=== PATIENT | female | born 1940 | race Caucasian/White ===

== ENCOUNTER 2020-09-09 10:43 | Observation (INO) | payer MEDICARE, OTHER, SELFPAY ==
[2020-09-09] VITALS (14 sets, daily range): BP systolic 113–157; BP diastolic 64–124; PULSE 57–68; RESP 16–18; TEMP 36.6–36.8; O2SAT 95–100; BMI 42.5; BMI 40.4
--- NOTE | 2020-09-09 10:58 | EDS_ITS ---
HPI History of Present Illness Chief Complaint: Chest Pain Informant: patient Onset/Context/Timing Onset: Today Activity at onset: sudden Quality: Positive for Sharp Location: Left Chest Current Severity: Mild Associated Symptoms: Positive for Lightheadedness Narrative Patient is a 80-year-old female with history of proximal atrial fibrillation, on amiodarone and Xarelto, hypertension and hyperlipidemia presenting with chest pain. Patient states started around 730 this morning. She was at rest when it started. It was underneath her left breast/left ribs and this did radiate across her chest. She states it is slightly worsened by deep breathing. Its been intermittent. She notes she started to feel dizzy and lightheaded and almost if she would pass out at home. She had some increased belching. She did have some mild nausea when she was feeling dizzy but denies any other nausea. She denies any new swelling of her legs but notes she has a history of dependent edema which is relatively unchanged. She did feel little sore in her left shoulder and states she felt that way previously when she is on statins. That also has resolved. Should a mild cough last night which is resolved. She denies any symptoms. She notes she did have some belching this morning but denies any other GI symptoms. Her cleaning team member is Dr. Elizabeth Vaca in [place]. Patient notes over the past month has had an intentional 10 pound weight loss with diet changes. She does note that she has had some chronic dyspnea on exertion when she uses her cane but does not feel that way when she uses her Rollator. Patient is coming from home. She was given 381 mg aspirin in route. Prior Similar Symptoms: No CVD Risk Factors: Positive for Hypertension [facility] Medical History (Updated 09/09/20 @ 19:[address] Jaelyn Flores, DO) Anemia Atrial fibrillation Chest pain High cholesterol History of hyperlipidemia History of stress test Hypertension Irregular heart beat Non-smoker Post-menopausal Vision loss of left eye Vision loss of right eye Home Medications amiodarone 200 mg PO DAILY 09/09/20 [History Last Taken 09/09/20] clonidine HCl 0.1 mg PO BID 09/09/20 [History Last Taken 09/09/20] fenofibrate 160 mg PO DAILY 09/09/20 [History Last Taken 09/09/20] metoprolol succinate 50 mg PO BID 09/09/20 [History Last Taken 09/09/20] quinapril 40 mg PO DAILY 09/09/20 [History Last Taken 09/09/20] rivaroxaban [Xarelto] 20 mg PO DAILY 09/09/20 [History Last Taken 09/08/20] triamterene 50 mg PO DAILY 09/09/20 [History Last Taken 09/09/20] vit C,L-Ng-ognvi-lutein-zeaxan [PreserVision AREDS-2] 1 tab PO BID 09/09/20 [History Last Taken 09/09/20] Allergy/AdvReac Type Severity Reaction Status Date / Time fish oil Allergy Hives Verified 09/09/20 10:45 Surgical History (Updated 09/09/20 @ 16:11 by Ella Euceda) S/P hysterectomy Social History (Updated 09/09/20 @ 10:47 by Divina Min) housing: house Smoking Status: Never smoker ROS ROS ED Constitutional Constitutional ED: Denies fatigue or weakness Eyes Eyes: Denies blurry vision or other visual disturbances Cardiovascular Cardiovascular: Reports chest pain; Denies orthopnea, palpitations or racing heartbeat Respiratory/Chest Respiratory/Chest: Reports dyspnea on exertion; Denies cough, dyspnea or orthopnea Gastrointestinal Gastrointestinal: Reports nausea; Denies abdominal pain or vomiting Genitourinary Genitourinary ED: Denies decreased urination or dysuria Musculoskeletal Musculoskeletal: Reports other Details: no leg swelling ; Denies extremity pain Integumentary Denies new lesions or rash Neurologic Neurologic: Denies paresthesias or weakness Psychiatric Psychiatric: Denies anxiety or depression Hematologic/Lymphatic Hematologic/Lymphatic: Denies easy bleeding or easy bruising EXAM Physical Exam Const Vital Signs: 09/09/20 10:45 09/09/20 11:15 09/09/20 13:10 Temperature 98.3 F Temperature Source Temporal Pulse Rate 58 L 63 Respiratory Rate 16 18 Blood Pressure 152/124 H 125/65 H Blood Pressure Mean 133 85 Pulse Ox 98 95 100 Oxygen Delivery Method Room Air Nasal Cannula Nasal Cannula Oxygen Flow Rate (L/min) 2 2 09/09/20 14:49 Temperature Temperature Source Pulse Rate 64 Respiratory Rate 18 Blood Pressure 157/104 H Blood Pressure Mean 121 Pulse Ox 96 Oxygen Delivery Method Room Air Oxygen Flow Rate (L/min) Positive well nourished, well developed, alert and oriented x3 General Appearance ED: well developed HEENT Reports normocephalic and moist mucous membranes normocephalic Mouth ED: Yes moist mucous membranes normal Eyes PERRL and EOMs intact bilaterally General Eye ED: Yes normal appearance of both eyes Pupil: PERRL Neck supple and no JVD Lymph Lymphatic: no lymphadenopathy noted Chest Wall inspection of chest normal and palpation of chest normal Resp normal respiratory effort, normal air movement and clear to auscultation bilaterally Resp Narrative: No crackles appreciated Cardio regular rate and regular rhythm Peripheral Pulses: pulses 2+ throughout GI soft to palpation, non-tender and non-distended Back/Spine no CVA tenderness and normal to inspection Extremity normal to inspection and full ROM Extremity Narrative: Mild nonpitting edema of the lower extremities bilaterally Neuro oriented x3, moves all extremities and no focal motor deficits Neuro Narrative: No focal neurologic deficits Sensorium / Orientation: awake and alert Psych mental status grossly normal and thought process normal Skin no rashes or lesions noted and no petechiae Heart Score History: Moderately Suspicious ECG: Normal Age: >/= 65 years Risk Factors: 1 or 2 Risk Factors Troponin: </= Normal Limit Score: 4 MDM MDM MDM Narrative Medical decision making narrative: Patient evaluated for chest pain that seems to be worse with exertion. It is pleuritic in nature. Patient does live home alone. She does have significant cardiac history. Her BNP is elevated she has cardiomegaly on chest x-ray. White blood cells are elevated at 50 with a resolving source of infection. Troponin is normal x2. TSH is normal. Creatinine is mildly elevated at 1.3. Not sure what her baseline is. No other significant laboratory abnormalities. Patient is ambulated is not hypoxic. She is symptomatic. She not feel safe going home. She does live home alone. She is anticoagulated on Xarelto so I do not suspect a PE. She states she has been compliant with her medication. Her heart score is 4 therefore she is not low risk for outpatient cardiac evaluation. Will be admitted for further cardiac monitoring and evaluation. Lab Data Labs: Laboratory Results - last 24 hr 09/09/20 09/09/20 09/09/20 10:50 10:50 10:50 WBC 15.0 H RBC 5.22 Hgb 14.1 Hct 46.9 MCV 89.8 MCH 27.0 MCHC 30.1 L RDW Std Deviation 46.4 H RDW Coeff of Laura 14.0 Plt Count 214 MPV 10.9 Immature Gran % (Auto) 0.400 Neut % (Auto) 85.8 H Lymph % (Auto) 5.1 L [place] % (Auto) 7.5 Eos % (Auto) 0.9 Baso % (Auto) 0.3 Absolute Neuts (auto) 12.8 H Absolute Lymphs (auto) 0.77 L Nucleated RBC % 0 Sodium 136 Potassium 3.9 Chloride 101 Carbon Dioxide 31.0 Anion Gap 4 L BUN 27 H Creatinine 1.30 H Estim Creat Clear Calc 29.03 Est GFR (MDRD) Af Amer 51 L Est GFR (MDRD) Non-Af 42 L BUN/Creatinine Ratio 20.8 H Glucose 103 Calcium 9.1 Magnesium 2.0 Troponin I < 0.015 B-Natriuretic Peptide 414.4 H TSH 0.91 09/09/20 13:50 WBC RBC Hgb Hct MCV MCH MCHC RDW Std Deviation RDW Coeff of Laura Plt Count MPV Immature Gran % (Auto) Neut % (Auto) Lymph % (Auto) [place] % (Auto) Eos % (Auto) Baso % (Auto) Absolute Neuts (auto) Absolute Lymphs (auto) Nucleated RBC % Sodium Potassium Chloride Carbon Dioxide Anion Gap BUN Creatinine Estim Creat Clear Calc Est GFR (MDRD) Af Amer Est GFR (MDRD) Non-Af BUN/Creatinine Ratio Glucose Calcium Magnesium Troponin I < 0.015 B-Natriuretic Peptide TSH Radiography Diagnostic Testing: Radiology Impression Chest X-Ray 09/09/20 11:25 IMPRESSION: Moderate cardiomegaly. Electronically Signed: Alfredo Patrick MD at 12:05 EDT , Service support , Rhythm Strip Rhythm Strip: Sinus Rhythm Rate: 69 Ectopy: None EKG Initial EKG: Attestation: I personally reviewed and interpreted this EKG as follows: Interpretation: Sinus Rhythm Comments: Normal sinus rhythm at a rate of 69 First-degree AV block with a CT interval of 316 Normal QRS and QTc Left axis deviation Normal ST segments Prior EKG tracings: not available for review Prior: No Prior Discharge Plan Dx/Rx/DC Orders Clinical Impression: Chest pain Disposition Disposition: Acute Care Hospital [facility] Discharge Date/Time: 09/09/20 15:44
--- NOTE | 2020-09-09 10:58 | EKG12_ITS ---
Test Reason : CP Blood Pressure : / mmHG Vent. Rate : 069 BPM Atrial Rate : 069 BPM P-R Int : 316 ms QRS Dur : 104 ms QT Int : 444 ms P-R-T Axes : 062 -59 032 degrees QTc Int : 475 ms Sinus rhythm with 1st degree A-V block Left axis deviation Abnormal ECG Confirmed by NABEEL GARRIDO, DEVIN ([id number]), clinical editor ARBEN AVINA ([id number]) on 09/13/2020 10:57:10 AM Referred By: EDUARD/JORDY Confirmed By:DEVIN LEES MD
[2020-09-09 11:10] LABS: Absolute Lymphocyte Count 0.77 X10^3/uL (0.83-4.51); Absolute Neutrophil Count 12.8 X10^3/uL (2.0-7.7); Basophil# 0.04 X10^3/uL; Basophil% 0.3 % (0-1); Eosinophil# 0.14 X10^3/uL; Eosinophils% 0.9 % (0-5); Hematocrit 46.9 % (37-47); Hemoglobin 14.1 g/dL (12.0-15.0); Lymphocyte # 0.77 X10^3/ul (0.83-4.51); Lymphocyte % 5.1 % (19-41); Mean Corp Hgb Conc 30.1 g/dL (32-36); Mean Corpuscular Volume 89.8 fL (81-99); Mean Platelet Vol. 10.9 fl (6.2-12.0); Monocyte# 1.13 X10^3/uL; Monocyte% 7.5 % (0-10); NRBC Flagged by Analyzer 0 % (0-5); Neutrophil # 12.84 X10^3/uL (2.7-7.7); Neutrophil % 85.8 % (47-70); Platelet Count 214 K/mm3 (150-450); RBC Distribution Width SD 46.4 fl (35.1-43.9); Red Blood Count 5.22 M/mm3 (4.2-5.4)
--- NOTE | 2020-09-09 11:25 | RAD_ITS ---
STUDY: X-RAY CHEST REASON FOR EXAM: Female, 80 years old. Chest pain and dizziness. TECHNIQUE: AP and lateral views of the chest. COMPARISON: None. FINDINGS: EKG electrodes are seen. The lungs are clear and expanded. There is no demonstrated pleural abnormality. There is moderate cardiac enlargement. Normal mediastinum and kristin. Normal visualized pulmonary arteries. There is atherosclerotic calcification of the aortic arch with tortuosity. Normal visualized thoracic spine. Normal visualized ribs, clavicles, and shoulders. There is no demonstrated abnormality of the visualized soft tissue structures of the upper abdomen. RAD/Chest PA and Lateral IMPRESSION: Moderate cardiomegaly. Electronically Signed: Alfredo Patrick MD at 12:05 EDT , Service support ,
[2020-09-09 11:31] LABS: Anion Gap 4 (5-15); BUN 27 mg/dL (7-18); BUN/Creat Ratio 20.8 RATIO (10-20); Calcium,Total 9.1 mg/dL (8.5-10.1); Chloride 101 mmol/L (98-107); EST Glomerular Filtration Rate 42 mL/min (>60); Est Glom Filt Rate - Afr Amer 51 mL/min (>60); Estimated Creatinine Clearance 29.03 ml/min; Glucose 103 mg/dL (74-106); Potassium 3.9 mmol/L (3.5-5.1); Sodium Level 136 mmol/L (136-145); Thyroid Stim Hormone (TSH) 0.91 uIU/mL (0.358-3.74)
[2020-09-09 11:36] LABS: BNP,B-Type NATRIURETIC PEPTIDE 414.4 pg/mL (0-100)
--- NOTE | 2020-09-09 15:35 | HP.PCM.HOS_ITS ---
Documented by User: Bright TORREZ 09/09/20 15:58 HPI - General General Date of Admission: 09/09/20 HPI Narrative Patient is a 80-year-old female presents to the ED at [facility] on 09/09/2020 with a chief complaint of chest pain and shortness of breath. Patient stated that her symptoms began around 730 this morning and reports a burning sensation that begins underneath both her breasts and radiate out across her chest. Patient also endorses dizziness, lightheadedness, nausea and increased belching. She denies any history of reflux. Patient wrist states that her legs are mildly swollen when compared to normal. Patient denies any r ecent recent sicknesses or sick contacts. Patient has completed a 2 dose series of the COVID vaccine. Past medical history is significant for atrial fibrillation, hypertension and hyperlipidemia. Patient's A. fib is managed on amiodarone and Xarelto, which she follows with her ships equipment engineer Dr. Elizabeth Vaca in [place]. Patient denies any history of heart failure or myocardial infarction, however did have an echocardiogram completed 3 weeks ago in [place]. EKG in the ED demonstrated a normal sinus rhythm at a rate of 69 with a first-degree AV block, no ST or T wave abnormalities noted. Initial troponins not elevated. BNP elevated at 414.4. CBC demonstrates a mild leukocytosis with a white blood cell count of 15. BMP shows a mildly elevated creatinine at 1.3. Chest x-ray demonstrates moderate cardiac enlargement, no acute pulmonary pathology noted. Heart score in the ED was 4. Aspirin 324 mg p.o. x1 given in the ED. Patient will be admitted to PCU for cardiac monitoring. [facility] Medical History (Updated 09/09/20 @ 16:11 by Ella Euceda) Anemia Atrial fibrillation Chest pain High cholesterol History of hyperlipidemia History of stress test Hypertension Irregular heart beat Non-smoker Post-menopausal Vision loss of left eye Vision loss of right eye Home Medications amiodarone 200 mg PO DAILY 09/09/20 [History Last Taken 09/09/20] clonidine HCl 0.1 mg PO BID 09/09/20 [History Last Taken 09/09/20] fenofibrate 160 mg PO DAILY 09/09/20 [History Last Taken 09/09/20] metoprolol succinate 50 mg PO BID 09/09/20 [History Last Taken 09/09/20] quinapril 40 mg PO DAILY 09/09/20 [History Last Taken 09/09/20] rivaroxaban [Xarelto] 20 mg PO DAILY 09/09/20 [History Last Taken 09/08/20] triamterene 50 mg PO DAILY 09/09/20 [History Last Taken 09/09/20] vit C,S-Mi-aahgg-lutein-zeaxan [PreserVision AREDS-2] 1 tab PO BID 09/09/20 [History Last Taken 09/09/20] Allergy/AdvReac Type Severity Reaction Status Date / Time fish oil Allergy Hives Verified 09/09/20 10:45 Surgical History (Updated 09/09/20 @ 16:11 by Ella Euceda) S/P hysterectomy Social History (Updated 09/09/20 @ 10:47 by Divina Min) housing: house Smoking Status: Never smoker ROS Constitutional Constitutional: Reports weight loss; Denies systems reviewed and no addt'l complaints, except as documented, as per HPI, anorexia, body ache(s), change in weight, chills, daytime sleepiness, difficulty sleeping, excessive sweating, fatigue, fever(s), frequent falls, headache(s), increased appetite, lethargy, malaise, night sweats, poor appetite, snoring, stops breathing during sleep, weakness, weight gain or other Eyes Eyes: Denies systems reviewed and no addt'l complaints, except as documented, as per HPI, none, acute decrease in peripheral vision, blindness, blind spots, bloody eye, blurry vision, burning, change in eye color, change in vision, decreased night vision, diplopia, discharge from eye(s), discongugate gaze, doub le vision, dry eyes, erythema, excessive blinking, exophthalmos, eye pain, floaters, foreign body, halo effect, irritation, itchy eyes, loss of central vision, loss of peripheral vision, loss of vision, miosis, mydriasis, numbness, nystagmus, other visual disturbances, periorbital itching, photophobia, ptosis, puffy eyes, requires corrective lenses, seeing flashes, spots in vision, sunken eyes, tearing, tunnel vision or other ENT HEENT: Denies systems reviewed and no addt'l complaints, except as documented, as per HPI, none, abnormal hearing, bleeding gums, change in voice, dental pain, disequillibrium, dizziness, dry mouth, dysphagia, ear discharge, ear pain, epistaxis, facial pain, foreign body in nose, halitosis, headache(s), hearing loss, hoarseness, lip swelling, loss taste/smell, mouth lesions, mouth pain, muc ositis, nasal congestion, nasal discharge, nasal obstruction, nasal trauma, neck mass, neck pain, nose pain, odynophagia, otalgia, post nasal drip, rhinorrhea, sinus pain, sinus pressure, sore throat, throat swelling, tinnitus, tongue swelling, vertigo or other Cardiovascular Cardiovascular: Reports as per HPI Respiratory/Chest Respiratory/Chest: Reports as per HPI Gastrointestinal Gastrointestinal: Reports as per HPI and none Genitourinary Genitourinary: Denies systems reviewed and no addt'l complaints, except as documented, as per HPI, none, abdominal discomfort, anuria, burning urination, change in libido, change in urinary stream, contractions, difficulty urinating, difficulty with ejaculations, dribbling, dysuria, erectile dysfunction, external genitalia discoloration, movement, flank pain, genital bruising, genital lesions, genital pain, hematospermia, hematuria, itching, low back pain, nocturia, oliguria, painful ejaculations, penile discharge, penile swelling, polyuria, post void dribbling, scrotal pain, scrotal swelling, testicular mass, testicular swelling, undescended testicles, urinary frequency, urinary hesitancy, urinary incontinence, urinary urgency or other Musculoskeletal Musculoskeletal: Denies systems reviewed and no addt'l complaints, except as documented, as per HPI, none, abnormal gait, arthralgias, atrophy, back pain, deformity, difficulty walking, extremity pain, joint pain, joint stiffness, joint swelling, limited range of motion, loss of height, muscle cramps, muscle spasms, muscle weakness, myalgias, neck pain, numbness, radiating pain into limb, stiffness, tingling, tremors or other Integumentary Integumentary: Reports none Neurologic Neurologic: Reports none Psychiatric Psychiatric: Reports none Endocrine Endocrinology: Reports none Hematologic/Lymphatic Hematologic/Lymphatic: Reports none Allergic/Immunologic Allergic/Immunologic: Reports none Vital Signs Vital Signs Vital Signs: 09/09/20 10:45 09/09/20 11:15 09/09/20 13:10 Temperature 98.3 F Temperature Source Temporal Pulse Rate 58 L 63 Respiratory Rate 16 18 Blood Pressure 152/124 H 125/65 H Blood Pressure Mean 133 85 Pulse Ox 98 95 100 Oxygen Delivery Method Room Air Nasal Cannula Nasal Cannula Oxygen Flow Rate (L/min) 2 2 09/09/20 14:49 09/09/20 15:30 Temperature 98.3 F Temperature Source Oral Pulse Rate 64 64 Respiratory Rate 18 18 Blood Pressure 157/104 H 132/112 H Blood Pressure Mean 121 118 Pulse Ox 96 97 Oxygen Delivery Method Room Air Room Air Oxygen Flow Rate (L/min) Physical Exam Const alert, oriented x3 and no apparent distress HEENT normocephalic, head/scalp atraumatic and hearing grossly normal bilaterally Eyes PERRL and EOMs intact bilaterally Neck full ROM, nuchal rigidity, supple and no JVD Lymph Lymphatic: no lymphadenopathy noted Chest Chest: abnormal inspection of the chest and symmetrical chest wall rise Resp normal respiratory effort, normal air movement and no retractions Cardio regular rate, regular rhythm, no murmurs, no rub and no gallops GI normal to inspection, nondistended, normoactive bowel sounds, soft to palpation, non-tender and non-distended Back/Spine normal to inspection Extremity normal to inspection and no joint enlargement Skin no rashes or lesions noted and no wounds Neuro CN's II-XII intact bilaterally Psych mental status grossly normal Lab / Micro Data Result Diagrams: 09/09/20 10:50 09/09/20 10:50 Labs: Laboratory Results - last 24 hr 09/09/20 09/09/20 09/09/20 10:50 10:50 10:50 WBC 15.0 H RBC 5.22 Hgb 14.1 Hct 46.9 MCV 89.8 MCH 27.0 MCHC 30.1 L RDW Std Deviation 46.4 H RDW Coeff of Laura 14.0 Plt Count 214 MPV 10.9 Immature Gran % (Auto) 0.400 Neut % (Auto) 85.8 H Lymph % (Auto) 5.1 L Phillips % (Auto) 7.5 Eos % (Auto) 0.9 Baso % (Auto) 0.3 Absolute Neuts (auto) 12.8 H Absolute Lymphs (auto) 0.77 L Nucleated RBC % 0 Sodium 136 Potassium 3.9 Chloride 101 Carbon Dioxide 31.0 Anion Gap 4 L BUN 27 H Creatinine 1.30 H Estim Creat Clear Calc 29.03 Est GFR (MDRD) Af Amer 51 L Est GFR (MDRD) Non-Af 42 L BUN/Creatinine Ratio 20.8 H Glucose 103 Calcium 9.1 Magnesium 2.0 Troponin I < 0.015 B-Natriuretic Peptide 414.4 H TSH 0.91 09/09/20 13:50 WBC RBC Hgb Hct MCV MCH MCHC RDW Std Deviation RDW Coeff of Laura Plt Count MPV Immature Gran % (Auto) Neut % (Auto) Lymph % (Auto) Phillips % (Auto) Eos % (Auto) Baso % (Auto) Absolute Neuts (auto) Absolute Lymphs (auto) Nucleated RBC % Sodium Potassium Chloride Carbon Dioxide Anion Gap BUN Creatinine Estim Creat Clear Calc Est GFR (MDRD) Af Amer Est GFR (MDRD) Non-Af BUN/Creatinine Ratio Glucose Calcium Magnesium Troponin I < 0.015 B-Natriuretic Peptide TSH Rhythm Strip Rhythm Strip: Sinus Rhythm Rate: 69 Ectopy: None Radiology Impression Chest X-Ray 09/09/20 11:25 IMPRESSION: Moderate cardiomegaly. Electronically Signed: Alfredo Patrick MD at 12:05 EDT , Service support , Assessment & Plan Assessment/Plan (1) Chest pain: Status: Acute Code(s): R07.9 - Chest pain, unspecified Plan: Patient is a 80-year-old female presents to the ED at [facility] on 09/09/2020 with a chief complaint of chest pain and shortness of breath. Patient stated that her symptoms began around 730 this morning and reports a burning sensation that begins underneath both her breasts and radiate out across her chest. Patient also endorses dizziness, lightheadedness, nausea and increased belching. She denies any history of reflux. Patient wrist states wanda t her legs are mildly swollen when compared to normal. Past medical history is significant for atrial fibrillation, hypertension and hyperlipidemia. Patient's A. fib is managed on amiodarone and Xarelto, which she follows with her ships equipment engineer Dr. Elizabeth Vaca in [place]. EKG in the ED demonstrated a normal sinus rhythm at a rate of 69 with a first-degree AV block, no ST or T wave abnormalities noted. Initial troponins not elevated. BNP elevated at 414.4. CBC demonstrates a mild leukocytosis with a white blood cell count of 15. BMP shows a mildly elevated creatinine at 1.3. Chest x-ray demonstrates moderate cardiac enlargement, no acute pulmonary pathology noted. Heart score in the ED was 4. Admit to PCU for cardiac monitoring and stress test in the a.m. 1) Chest pain (unspecified) Less than 12-hour history of chest pain and shortness of breath with dizziness, lightheadedness nausea and increased belching. EKG NSR with a first-degree AV block, no ST or T wave changes noted. Troponins not elevated. BNP elevated at 414.4. Chest x-ray demonstrates moderate cardiomegaly, no acute pulmonary pathology noted. Plan; admit to PCU for cardiac monitoring, stress test in the a.m, attempt to retrieve echocardiogram from 3 weeks ago. 2) Atrial fibrillation EKG from the ED as above. Prescribed amiodarone and Xarelto at home. Plan; attempt to retrieve echocardiogram from 3 weeks ago, continue amiodarone and Xarelto. 3) Hypertension Not within goal, currently 132/112. On quinapril and metoprolol at home. Plan; continue home quinapril and metoprolol succinate, hydralazine as needed. 4) hyperlipidemia On fenofibrate at home. 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 Plan; obtain lipid panel, continue fenofibrate. DVT prophylaxis -continue Xarelto Patient seen by Bright Coffman PA-C, under the supervision of Dr. Geronimo. Documented by User: Dr. Geovanny Geronimo MD 09/09/20 16:18 HPI - General General Date of Admission: 09/09/20 [facility] Medical History (Updated 09/09/20 @ 16:11 by Ella Euceda) Anemia Atrial fibrillation Chest pain High cholesterol History of hyperlipidemia History of stress test Hypertension Irregular heart beat Non-smoker Post-menopausal Vision loss of left eye Vision loss of right eye Home Medications amiodarone 200 mg PO DAILY 09/09/20 [History Last Taken 09/09/20] clonidine HCl 0.1 mg PO BID 09/09/20 [History Last Taken 09/09/20] fenofibrate 160 mg PO DAILY 09/09/20 [History Last Taken 09/09/20] metoprolol succinate 50 mg PO BID 09/09/20 [History Last Taken 09/09/20] quinapril 40 mg PO DAILY 09/09/20 [History Last Taken 09/09/20] rivaroxaban [Xarelto] 20 mg PO DAILY 09/09/20 [History Last Taken 09/08/20] triamterene 50 mg PO DAILY 09/09/20 [History Last Taken 09/09/20] vit C,X-Qe-haxwj-lutein-zeaxan [PreserVision AREDS-2] 1 tab PO BID 09/09/20 [H istory Last Taken 09/09/20] Allergy/AdvReac Type Severity Reaction Status Date / Time fish oil Allergy Hives Verified 09/09/20 10:45 Surgical History (Updated 09/09/20 @ 16:11 by Ella Euceda) S/P hysterectomy Social History (Updated 09/09/20 @ 10:47 by Divina Min) housing: house Smoking Status: Never smoker Lab / Micro Data Result Diagrams: 09/09/20 10:50 09/09/20 10:50 Assessment & Plan Assessment/Plan (1) Chest pain: Status: Acute Code(s): R07.9 - Chest pain, unspecified Plan: Hospitalist note: I am seeing this patient in conjunction with Bright Coffman. I independently seen and examined the patient. History and physical, laboratory data and imaging studies reviewed and I concur with above admission and work-up plan. Patient presented to the emergency room because of chest pain, started this morning, eyad cribed as burning sensation, started at rest, radiates across the lower part of her chest, associated with mild shortness of breath and without aggravating or relieving factors. Patient mentioned that she has been going under lots of stress because she lost her son 2 years ago unexpectedly and his birthday is coming soon. In the emergency department, her vital signs were stable. Her routine blood work was remarkable for leukocytosis, BUN is 27, creatinine is 1.30. LFT was unremarkable. EKG revealed normal sinus rhythm with first-degree AV block, no acute ischemic changes. Troponin was negative. BNP was 414. TSH was normal. Chest x-ray revealed mild cardiomegaly, no acute findings. She is being admitted for atypical chest pain for evaluation. - Physical Exam General: Alert, Oriented x3, Cooperative, No apparent distress. HEENT: Atraumatic, PERRLA, EOMI. Neck: Supple, No JVD, Negative Carotid Bruits, Trachea Midline, Thyroid Normal. Lungs: Clear to auscultation, Normal air movement, No rhonchi, No wheeze, No rales. Cardiovascular: Regular rate, Regular Rhythm, Normal S1, Normal S2, PMI Normal. Abdomen: Bowel Sounds Present, Soft, Non Tender, Non-Distended, No Hepato-splen omegaly. Extremities: No clubbing, No cyanosis, No edema Skin: No rashes, No breakdown Neurological: Cranial nerves are intact, neuro grossly intact Vital Signs are stable. Assessment and plan: #1 atypical chest pain: Risk factors are age, history of hypertension, hyperlipidemia and atrial fibrillation. Initial EKG and troponin was unremarkable. Chest x-ray reviewed as above. Plan: Admit to PCU for observation, cardiac monitoring, serial cardiac enzymes, nitroglycerin as needed, gentle IV fluids for hydration, Tylenol as needed, Zofran as needed, nuclear stress test tomorrow morning if cardiac enzymes are negative. #2 dehydration: BUN and creatinine slightly elevated. Plan: Gentle IV fluid hydration, input output chart, repeat BMP tomorrow morning. #3 leukocytosis: Likely reactive, no evidence of infection. Plan to repeat CBC tomorrow morning. #4 other chronic medical problems: Stable, continue current medications as above. This note was generated with [employer] dictation software. It may contain incorrect words, spelling, and punctuation that were not noted in checking the note before signing. Visit Charges OBSV E&M: 12332 Initial observation care L2
--- NOTE | 2020-09-09 16:43 | EKG12_ITS ---
Test Reason : Blood Pressure : / mmHG Vent. Rate : 063 BPM Atrial Rate : 063 BPM P-R Int : 224 ms QRS Dur : 112 ms QT Int : 476 ms P-R-T Axes : 027 -47 023 degrees QTc Int : 487 ms Sinus rhythm with 1st degree A-V block with Premature ventricular complexes Left axis deviation Abnormal ECG Confirmed by NABEEL GARRIDO, DEVIN ([id number]), commercial production editor ARBEN AVINA ([id number]) on 09/13/2020 11:19:26 AM Referred By: AGUEDA Confirmed By:DEVIN LEES MD
[2020-09-09 17:29] LABS: International Normalized Ratio 1.4; Prothrombin Time (Protime)PT. 16.5 SECONDS (11.7-14.9)
[2020-09-09] MEDS: 0.9% Normal Saline 1,000 ML 75 ML IV (18:05)
[2020-09-09] MEDS: Rivaroxaban 20 MG Tablet PO (18:06)
[2020-09-09] MEDS: 0.9% Saline Lock 10 ML Syringe IV (18:06)
[2020-09-09] MEDS: Acetaminophen 325 MG Tablet 650 MG PO (18:11)
[2020-09-09] MEDS: CLARIFY ORDER NOTE (18:14)
[2020-09-09] MEDS: cloNIDine HCl 0.1 MG Tablet PO (22:10)
[2020-09-09] MEDS: Metoprolol Tartrate 50 MG Tablet PO (22:13)
[2020-09-09] MEDS: Citalopram 20 MG Tablet PO (23:38)
[2020-09-10 03:00] VITALS: PULSE 52
[2020-09-10 03:12] VITALS: BP 157/49; PULSE 55; RESP 18; TEMP 36.6; O2SAT 95
[2020-09-10 06:09] VITALS: BP 125/68; PULSE 55
[2020-09-10] MEDS: cloNIDine HCl 0.1 MG Tablet PO (06:11)
[2020-09-10] MEDS: Lisinopril 40 MG Tablet PO (06:12)
[2020-09-10] MEDS: Amiodarone 200 MG Tablet PO (06:12)
[2020-09-10 06:33] VITALS: PULSE 55
[2020-09-10 06:58] LABS: Absolute Lymphocyte Count 0.88 X10^3/uL (0.83-4.51); Absolute Neutrophil Count 8.1 X10^3/uL (2.0-7.7); Basophil# 0.02 X10^3/uL; Basophil% 0.2 % (0-1); Hematocrit 42.1 % (37-47); Hemoglobin 13.1 g/dL (12.0-15.0); Lymphocyte # 0.88 X10^3/ul (0.83-4.51); Lymphocyte % 8.8 % (19-41); Mean Corp Hgb Conc 31.1 g/dL (32-36); Mean Corpuscular Hgb 28.1 pg (27.0-32.0); Mean Corpuscular Volume 90.3 fL (81-99); Mean Platelet Vol. 11.7 fl (6.2-12.0); Monocyte# 0.82 X10^3/uL; Monocyte% 8.2 % (0-10); NRBC Flagged by Analyzer 0 % (0-5); Neutrophil # 8.14 X10^3/uL (2.7-7.7); Neutrophil % 81.5 % (47-70); Platelet Count 192 K/mm3 (150-450); RBC Distribution Width CV 14.1 % (11.6-14.6); RBC Distribution Width SD 46.8 fl (35.1-43.9); Red Blood Count 4.66 M/mm3 (4.2-5.4)
[2020-09-10 07:30] LABS: Anion Gap 4 (5-15); BUN 19 mg/dL (7-18); BUN/Creat Ratio 19.3 RATIO (10-20); Calcium,Total 8.7 mg/dL (8.5-10.1); Chloride 106 mmol/L (98-107); Creatinine, Serum 0.98 mg/dL (0.55-1.02); EST Glomerular Filtration Rate 58 mL/min (>60); Est Glom Filt Rate - Afr Amer 70 mL/min (>60); Estimated Creatinine Clearance 38.51 ml/min; Glucose 88 mg/dL (74-106); Potassium 3.6 mmol/L (3.5-5.1); Sodium Level 137 mmol/L (136-145)
[2020-09-10 07:33] VITALS: O2SAT 97
[2020-09-10] MEDS: 0.9% Normal Saline 1,000 ML 75 ML IV (07:33)
[2020-09-10 09:52] VITALS: BP 123/70; PULSE 58; RESP 18; TEMP 36.8; O2SAT 96
[2020-09-10] MEDS: Fenofibrate 145 MG Tablet PO (10:01)
--- NOTE | 2020-09-10 10:55 | CASEMGMT ---
RN CM KIER HAND CM to room to meet with patient for initial transition planning/care coordination assessment. DAVE SAGE introduced self and role at [facility]. Pt voices understanding and consents to assessment at this time. Pt resting in bed in no distress at this time. Pt is A/O at this time and answers all questions appropriately. Care providers, pharmacy, and demographics verified/updated at this time. PCP: Dr Rigo Vaca Specialists: Dr Bryant Vaca--shop mechanic helper @ [facility] Preferred Pharmacy: [facility] Insurance: [facility], [facility] Prescription Benefit: Yes Living Will/HPOA: Has both. Dtr, Darby, is Healthcare POA LNOK: Dtr, Darby/POA Living Arrangements: Lives alone in 2-story home w/bed and bath on 2nd floor. Laundry in the basement. Dtr and granddaughter lives close and are supportive. Pt reports someone is w/her most of the time. See PT eval. Transportation: Pt states drives self and states no transportation concerns at this time. DME: States has the following DME: nicholas,kariator Pt states no need for further DME at this time. HHC/SNF: Hx of [facility] after hip surgery and then HHC after return to home. Denies need for HHC. Pt states would like OP therapy and plans to go to [place]. Script obtained from Dr Prado and given to pt. Pt wishes to return home and states has no concerns with going home at time of discharge. CM to follow for any further discharge planning/needs. Pt voices no further concerns/needs at this time. Advised pt to ask for CM if any further questions/concerns/needs arise. Voices understanding. PLAN: Home w/OP therapy Gallito BURNS RN, CM
--- NOTE | 2020-09-10 11:33 | PCM.DC ---
Discharge Instructions Outpatient Procedure Reason For Visit: CHEST PAIN Diet Discharge Diet: No restrictions Activity Discharge Activity: Return to Normal Activity Follow Up Care Please Follow Up With: Primary care provider When: Within the next 2 weeks. Test Results: Test results from this visit will be discussed in further detail at your follow-up appointment, if applicable. Discharge Plan Admission Admit Date/Time: 09/09/20 15:09 Primary Reason for Your Visit: Chest pain Attending Provider: Valentín Prado Primary Care Provider: Rigo Vaca Instructions Patient Instructions: ED Chest Pain, Noncardiac Discharge Orders/Prescriptions Prescriptions: Continued clonidine HCl 0.1 mg Tablet 0.1 mg PO BID RF: 0 amiodarone 200 mg Tablet 200 mg PO DAILY RF: 0 quinapril 40 mg Tablet 40 mg PO DAILY RF: 0 triamterene 50 mg Capsule 50 mg PO DAILY RF: 0 fenofibrate 160 mg Tablet 160 mg PO DAILY RF: 0 Xarelto 20 mg Tablet 20 mg PO DAILY RF: 0 PreserVision AREDS-2 250-90-40-1 mg Capsule 1 tab PO BID RF: 0 metoprolol tartrate [Lopressor] 50 mg Tablet 50 mg PO BID RF: 0 citalopram 20 mg Tablet 20 mg PO DAILY RF: 0 Referrals: Rigo Vaca MD [Primary Care Provider] - Disposition Patient Disposition: Home, self care
--- NOTE | 2020-09-10 13:53 | PCM.DC.SUM ---
Documented by User: Bright TORREZ 09/10/20 14:01 Providers Date of Admission: 09/09/20 Primary Care Physician: Dr. Rigo Vaca MD Reason For Visit: CHEST PAIN Diagnosis Discharge Diagnosis (1) Chest pain: Status: Acute Code(s): R07.9 - Chest pain, unspecified Medications at Discharge Home Medications PreserVision AREDS-2 1 tab PO BID 09/09/20 Xarelto 20 mg PO DAILY 09/09/20 amiodarone 200 mg PO DAILY 09/09/20 citalopram 20 mg PO DAILY 09/09/20 clonidine HCl 0.1 mg PO BID 09/09/20 fenofibrate 160 mg PO DAILY 09/09/20 metoprolol tartrate [Lopressor] 50 mg PO BID 09/09/20 quinapril 40 mg PO DAILY 09/09/20 triamterene 50 mg PO DAILY 09/09/20 Hospital Course Summary of Care Provided Minutes Spent on Discharge: 35 Hospital Course: Patient is a 80-year-old female presented to the ED on 09/09/2020 with a chief complaint of chest pain and shortness of breath. Patient was admitted for chest pain/ACS rule out. Patient reports resolution of her symptoms at admission to include chest pain and shortness of breath. Nuclear stress test conducted on 09/10/2020 demonstrated normal cardiac perfusion and an ejection fraction of 55 to 60%. Patient will be discharged today. 1) Chest pain (unspecified) EKG NSR with a first-degree AV block, no ST or T wave changes noted. Troponins not elevated. BNP elevated at 414.4. TSH normal chest x-ray demonstrates moderate cardiomegaly, no acute pulmonary pathology noted. Nuclear stress test as above, not able to retrieve results of echocardiogram from a couple weeks ago. Plan; continue amiodarone, metoprolol and Xarelto. 2) Atrial fibrillation EKG from the ED as above. Prescribed amiodarone and Xarelto at home. Plan; continue amiodarone and Xarelto. 3) Hypertension Stable. On quinapril and metoprolol at home. Plan; continue home quinapril and metoprolol succinate. 4) Hyperlipidemia Continue fenofibrate. Patient seen by Bright Coffman PA-C, under the supervision of Dr. Prado. Physical Exam Narrative Patient is a 80-year-old female complete resting in bed, alert and oriented x3. Patient reports resolution of her chest pain and shortness of breath at admission. Denies chest pain, shortness of breath, palpitations, fever, chills, N/V/D. Const alert, oriented x3 and no apparent distress HEENT normocephalic, head/scalp atraumatic and hearing grossly normal bilaterally Eyes EOMs intact bilaterally Neck no lymphadenopathy, supple and no JVD Resp normal respiratory effort, no retractions and no use of accessory muscles Cardio regular rate, regular rhythm, no murmurs and no rub GI normal to inspection, nondistended, normoactive bowel sounds and non-tender Extremity full ROM Skin no rashes or lesions noted and no wounds Neuro CN's II-XII intact bilaterally Psych affect normal ABG / Lab / Microbiology Data Result Diagrams: 09/10/20 05:32 09/10/20 05:32 Laboratory: Laboratory Results - last 24 hr 09/09/20 09/09/20 09/09/20 13:50 16:45 16:45 WBC RBC Hgb Hct MCV MCH MCHC RDW Std Deviation RDW Coeff of Laura Plt Count MPV Immature Gran % (Auto) Neut % (Auto) Lymph % (Auto) Gilliam % (Auto) Eos % (Auto) Baso % (Auto) Absolute Neuts (auto) Absolute Lymphs (auto) Nucleated RBC % PT 16.5 H INR 1.4 Sodium Potassium Chloride Carbon Dioxide Anion Gap BUN Creatinine Estim Creat Clear Calc Est GFR (MDRD) Af Amer Est GFR (MDRD) Non-Af BUN/Creatinine Ratio Glucose Calcium Troponin I < 0.015 < 0.015 09/10/20 09/10/20 05:32 05:32 WBC 10.0 RBC 4.66 Hgb 13.1 Hct 42.1 MCV 90.3 MCH 28.1 MCHC 31.1 L RDW Std Deviation 46.8 H RDW Coeff of Laura 14.1 Plt Count 192 MPV 11.7 Immature Gran % (Auto) 0.300 Neut % (Auto) 81.5 H Lymph % (Auto) 8.8 L Gilliam % (Auto) 8.2 Eos % (Auto) 1.0 Baso % (Auto) 0.2 Absolute Neuts (auto) 8.1 H Absolute Lymphs (auto) 0.88 Nucleated RBC % 0 PT INR Sodium 137 Potassium 3.6 Chloride 106 Carbon Dioxide 27.0 Anion Gap 4 L BUN 19 H Creatinine 0.98 Estim Creat Clear Calc 38.51 Est GFR (MDRD) Af Amer 70 Est GFR (MDRD) Non-Af 58 L BUN/Creatinine Ratio 19.3 Glucose 88 Calcium 8.7 Troponin I D/C Instructions Discharge Diet: No restrictions Discharge Activity: Return to Normal Activity Please Follow Up With: Primary care provider When: Within the next 2 weeks. Meaningful Use Info Meaningful Use Diagnoses (Choose all that apply): None applicable Discharge Plan Admission Admit Date/Time: 09/09/20 15:09 Primary Reason for Your Visit: Chest pain Attending Provider: Valentín Prado Primary Care Provider: Rigo Vaca Instructions Patient Instructions: ED Chest Pain, Noncardiac Discharge Orders/Prescriptions Prescriptions: Continued clonidine HCl 0.1 mg Tablet 0.1 mg PO BID RF: 0 amiodarone 200 mg Tablet 200 mg PO DAILY RF: 0 quinapril 40 mg Tablet 40 mg PO DAILY RF: 0 triamterene 50 mg Capsule 50 mg PO DAILY RF: 0 fenofibrate 160 mg Tablet 160 mg PO DAILY RF: 0 Xarelto 20 mg Tablet 20 mg PO DAILY RF: 0 PreserVision AREDS-2 250-90-40-1 mg Capsule 1 tab PO BID RF: 0 metoprolol tartrate [Lopressor] 50 mg Tablet 50 mg PO BID RF: 0 citalopram 20 mg Tablet 20 mg PO DAILY RF: 0 Referrals: Rigo Vaca MD [Primary Care Provider] - Disposition Patient Disposition: Home, self care Documented by User: Dr. Valentín Prado MD 09/10/20 20:08 Providers Date of Admission: 09/09/20 Reason For Visit: CHEST PAIN Medications at Discharge Home Medications PreserVision AREDS-2 1 tab PO BID 09/09/20 Xarelto 20 mg PO DAILY 04/30/21 amiodarone 200 mg PO DAILY 09/09/20 citalopram 20 mg PO DAILY 09/09/20 clonidine HCl 0.1 mg PO BID 09/09/20 fenofibrate 160 mg PO DAILY 09/09/20 metoprolol tartrate [Lopressor] 50 mg PO BID 09/09/20 quinapril 40 mg PO DAILY 09/09/20 triamterene 50 mg PO DAILY 09/09/20 ABG / Lab / Microbiology Data Result Diagrams: 09/10/20 05:32 09/10/20 05:32 Discharge Plan Admission Admit Date/Time: 09/09/20 15:09 Primary Reason for Your Visit: Chest pain Attending Provider: Valentín Prado Primary Care Provider: Rigo Vaca Instructions Patient Instructions: ED Chest Pain, Noncardiac Discharge Orders/Prescriptions Prescriptions: Continued clonidine HCl 0.1 mg Tablet 0.1 mg PO BID RF: 0 amiodarone 200 mg Tablet 200 mg PO DAILY RF: 0 quinapril 40 mg Tablet 40 mg PO DAILY RF: 0 triamterene 50 mg Capsule 50 mg PO DAILY RF: 0 fenofibrate 160 mg Tablet 160 mg PO DAILY RF: 0 Xarelto 20 mg Tablet 20 mg PO DAILY RF: 0 PreserVision AREDS-2 250-90-40-1 mg Capsule 1 tab PO BID RF: 0 metoprolol tartrate [Lopressor] 50 mg Tablet 50 mg PO BID RF: 0 citalopram 20 mg Tablet 20 mg PO DAILY RF: 0 Referrals: Rigo Vaca MD [Primary Care Provider] - Disposition Patient Disposition: Home, self care Addendum Addendum: Addendum: Dr. Prado I personally examined the patient and reviewed the chart. I agree with the above. 80-year-old female presented to the hospital with shortness of breath and chest pain. She has a history of A. fib but no cardiac stents, is on amiodarone as well as metoprolol, lisinopril, and Xarelto. She had 3 - troponins as well as a nonischemic EKG. On the day of discharge she said that her chest pain had resolved. She underwent a stress test prior to discharge which was negative for any ischemia. I discussed with her the plan for discharge today and she expressed understanding of the risk and benefits of going home and would like to go home today. Visit Charges OBSV E&M: 00445 Observation care discharge
--- NOTE | 2020-09-10 14:05 | STRESSREP_ITS ---
Stress Test Report Pharmacologic myocardial perfusion stress test. Indication: 10-year-old patient who presented with symptoms of chest pain. And shortness of breath. Known history of atrial fibrillation, hypertension hyperlipidemia. Primary manufacturing maintenance technician is Dr.T. Vaca in [place] Stress protocol: The electrocardiogram revealed normal sinus rhythm, following Lexiscan infusion patient had episode of PVCs remained in sinus rhythm. Heart rate 60 bpm anamaria to a maximum heart rate of 71 bpm. Resting blood pressure of 118/82 mmHg anamaria to maximum blood pressure of 122/68 mmHg. Myocardial perfusion protocol. 15 mCi ]of Technetium 99m Sestamibi was injected at rest. [ 0.4 mg ]of Regadenoson was infused per usual protocol peak infusion 44.5 mCi ]of Technetium 99m sestamibi was injected. Stress images were obtained stress and rest images were reconstructed and compared in the short axis vertical and horizontal long axis. Gated images were also obtained. Perfusion SPECT analysis: Review of the images demonstrate normal uptake of sestamibi at rest, post stress images demonstrate similar uptake of sestamibi to the resting images, homogeneous tracer uptake With no evidence of reversible myocardial ischemia. Gated SPECT analysis: The gated ejection fraction is 64 %. Normal LV wall motion with normal LV systolic function. Conclusion: Negative Lexiscan sestamibi myocardial perfusion study for reversible myocardial ischemia patient remains in normal sinus rhythm with infrequent episode of PVCs following IV Lexiscan. Normal LV systolic function. Zane Escamilla MD,FACC,[facility]
== END 2020-09-10 11:46 | disposition home or self-care (01) ==
LOC: ED 11:06 → PCU 15:22
PROVIDERS: Admitting Provider Hospitalist; Emergency Provider Emergency Medicine; PCP Internal Medicine; Visit Provider Family Medicine
DX: R07.89 Other chest pain (principal); E78.5 Hyperlipidemia, unspecified; E86.0 Dehydration; I10 Essential (primary) hypertension; I48.91 Unspecified atrial fibrillation; I44.0 Atrioventricular block, first degree; R06.02 Shortness of breath; Z79.899 Other long term (current) drug therapy; Z79.01 Long term (current) use of anticoagulants
CPT/HCPCS: 36415; 71046; 78452; 80048; 83735; 83880; 84443; 84484; 85025; 85610; 93005; 93017; 96360; 96361; 97162; 99218; 99285; A9500; J7030; A4216; G0378; J2785